=== PATIENT | male | born 1975 | race Caucasian/White ===

== ENCOUNTER 2024-06-10 12:59 | Inpatient (IN) | payer BC ==
[~2024-06-10] VITALS: Ht 175.3 cm; Wt 81.5 kg
[~2024-06-10 12:59] MED LIST: CLON-371 PO; CYCL-1 PO; ESZO3TAB32 PO; HYDR4TAB45 PO; MORP30TA60 PO
[2024-06-10 13:48] LABS: BASOPHILS % (AUTO) 0.7 % (0-1); EOSINOPHILS % (AUTO) 0.8 % (0-6); LYMPHOCYTES # (AUTO) 1.8 X10'3 (1.1-4.8); LYMPHOCYTES % (AUTO) 32.3 % (21-51); MEAN CORPUSCULAR HEMOGLOBIN 31.5 PG (27.0-31.0); MEAN CORPUSCULAR HGB CONC 34.1 g/dL (33.0-36.5); MEAN CORPUSCULAR VOLUME 92.2 FL (78-98); MEAN PLATELET VOLUME 7.3 FL (7.4-10.4); MONOCYTES # (AUTO) 0.4 X10'3 (0-0.9); MONOCYTES % (AUTO) 7.3 % (2-12); NEUTROPHILS # (AUTO) 3.3 X10'3 (1.8-7.7); NEUTROPHILS % (AUTO) 58.9 % (42-75); PLATELET COUNT 240 X10'3 (140-440); RED BLOOD COUNT 4.45 X10'6 (4.70-6.10); RED CELL DISTRIBUTION WIDTH 13.3 % (11.5-14.5); WHITE BLOOD COUNT 5.6 X10'3 (4.5-11.0)
[2024-06-10 14:00] LABS: ALANINE AMINOTRANSFERASE 33 U/L (12-78); ALBUMIN 4.2 G/DL (3.4-5.0); ALBUMIN/GLOBULIN RATIO 1.3 (1.1-1.5); ALKALINE PHOSPHATASE 69 IU/L (46-116); ANION GAP 6 (8-16); ASPARTATE AMINO TRANSFERASE 17 U/L (10-37); BILIRUBIN,TOTAL 0.4 MG/DL (0.1-1.0); BLOOD UREA NITROGEN 18 MG/DL (7-18); BUN/CREATININE RATIO 17.5 (10.0-20.0); CALCIUM 9.6 MG/DL (8.5-10.1); CHLORIDE 104 MMOL/L (99-107); CREATININE 1.03 MG/DL (0.60-1.10); GLUCOSE 91 MG/DL (70-104); POTASSIUM 4.4 MMOL/L (3.5-5.1); SODIUM 138 MMOL/L (135-145); TOTAL CARBON DIOXIDE 27.8 MMOL/L (24-32); TOTAL PROTEIN 7.5 G/DL (6.4-8.2); eCRCL 86 ML/MIN; eGFR 76 ML/MIN
[2024-06-10 14:07] LABS: PRO BRAIN NATRIURETIC PEPTIDE 82 PG/ML (0-125)
[2024-06-10] MEDS: aspirin 81mg tab.chew PO ONE (16:34)
[2024-06-10] MEDS ORDERED: AMIT10TA6 PO (16:37)
[2024-06-10] MEDS ORDERED: METO-395 PO (16:37)
[2024-06-10] MEDS ORDERED: ISOS30TA84 PO (16:37)
[2024-06-10] MEDS ORDERED: LIPA1CAP18 PO (16:37)
[2024-06-10] MEDS ORDERED: magnesium sulf-water 4G/100mL 100 ML IV PRN (16:45)
[2024-06-10] MEDS ORDERED: potassium Cl 40MEQ/1/2NS 520ml 520 ML IV PRN (16:45)
[2024-06-10] MEDS ORDERED: magnesium Cl slow-release 64mg tablet PO PRN (16:45)
[2024-06-10] MEDS ORDERED: ondansetron/PF 4mg/2ml inj IV PRN (16:45)
[2024-06-10] MEDS ORDERED: acetaminophen 325mg tablet PO PRN ×2 (16:45)
[2024-06-10] MEDS ORDERED: mag hydrox/Alum hydrox/simeth 30ml oral suspension PO PRN (16:45)
[2024-06-10] MEDS ORDERED: potassium Cl 20 mEq SR tablet PO PRN ×2 (16:45)
[2024-06-10] MEDS ORDERED: magnesium sulf-water 2g/50mL 50 ML IV PRN (16:45)
[2024-06-10] MEDS: LORazepam 2 mg/ml vial IV PRN (17:17)
[2024-06-10] MEDS: normal saline 1000ml 1,000 ML IV SCH (17:17)
[2024-06-10] MEDS: morphine 2 MG/ML inj. syringe IV PRN (18:00)
[2024-06-10 19:48] VITALS: BP 124/73; PULSE 65; RESP 16; TEMP 98; O2SAT 99
[2024-06-10 20:00] VITALS: RESP 16; O2SAT 99
[2024-06-10] MEDS: zolpidem 5mg tablet PO SCH (21:32)
[2024-06-10] MEDS: heparin, porcine 5000 units/ml vial SQ SCH (21:35)
[2024-06-10 22:00] VITALS: BP 125/85; PULSE 65; RESP 14; TEMP 98; O2SAT 97
[2024-06-11] VITALS (14 sets, daily range): BP systolic 111–145; BP diastolic 75–105; PULSE 60–107; RESP 12–18; TEMP 97.1–98; O2SAT 96–100
[2024-06-11] MEDS: LORazepam 0.5 MG tablet PO PRN (03:41)
[2024-06-11] MEDS ORDERED: nitroGLYCERIN 500mcg/5mL D5W 5 ML IV ONE (05:50)
[2024-06-11] MEDS ORDERED: ondansetron/PF 4mg/2ml inj IV PRN (08:30)
[2024-06-11] MEDS ORDERED: HYDROcodone/acetaminophen 5mg/325mg tablet PO PRN (08:35)
[2024-06-11] MEDS ORDERED: proCHLORperazine 10 MG/2 ml inj IV PRN (08:35)
[2024-06-11] MEDS ORDERED: HYDROcodone/acetaminophen 10/325mg tab PO PRN (08:35)
[2024-06-11 09:24] LABS: BASOPHILS % (AUTO) 0.9 % (0-1); EOSINOPHILS # (AUTO) 0.1 X10'3 (0-0.9); HEMATOCRIT 35.9 % (42.0-52.0); HEMOGLOBIN 12.3 g/dl (14.0-17.9); LYMPHOCYTES # (AUTO) 2.2 X10'3 (1.1-4.8); LYMPHOCYTES % (AUTO) 44.7 % (21-51); MEAN CORPUSCULAR HEMOGLOBIN 32.1 PG (27.0-31.0); MEAN CORPUSCULAR HGB CONC 34.2 g/dL (33.0-36.5); MEAN CORPUSCULAR VOLUME 93.9 FL (78-98); MEAN PLATELET VOLUME 7.4 FL (7.4-10.4); MONOCYTES # (AUTO) 0.3 X10'3 (0-0.9); MONOCYTES % (AUTO) 6.3 % (2-12); NEUTROPHILS # (AUTO) 2.3 X10'3 (1.8-7.7); NEUTROPHILS % (AUTO) 46.1 % (42-75); PLATELET COUNT 192 X10'3 (140-440); RED BLOOD COUNT 3.82 X10'6 (4.70-6.10); RED CELL DISTRIBUTION WIDTH 13.2 % (11.5-14.5)
[2024-06-11 09:41] LABS: ALANINE AMINOTRANSFERASE 28 U/L (12-78); ALBUMIN 3.4 G/DL (3.4-5.0); ALBUMIN/GLOBULIN RATIO 1.2 (1.1-1.5); ALKALINE PHOSPHATASE 56 IU/L (46-116); ANION GAP 3 (8-16); ASPARTATE AMINO TRANSFERASE 26 U/L (10-37); BILIRUBIN,TOTAL 0.4 MG/DL (0.1-1.0); BLOOD UREA NITROGEN 12 MG/DL (7-18); CALCIUM 8.3 MG/DL (8.5-10.1); CHLORIDE 105 MMOL/L (99-107); CHOL/HDL RATIO 5.4 (0.00-4.99); CHOLESTEROL 193 MG/DL (0-200); CREATININE 0.86 MG/DL (0.60-1.10); GLUCOSE 95 MG/DL (70-104); HDL CHOLESTEROL 36 MG/DL (35-60); LDL CHOLESTEROL 120 MG/DL (50-100); POTASSIUM 4.6 MMOL/L (3.5-5.1); SODIUM 137 MMOL/L (135-145); TOTAL CARBON DIOXIDE 29.1 MMOL/L (24-32); TOTAL PROTEIN 6.2 G/DL (6.4-8.2); TRIGLYCERIDES 133 MG/DL (20-135); eCRCL 103 ML/MIN; eGFR > 90 ML/MIN
[2024-06-11] MEDS: OXAZEpam 15mg capsule PO PRN (10:11)
[2024-06-11] MEDS: pantoprazole 40mg Tablet.DR PO SCH ×2 (10:13→20:08)
[2024-06-11] MEDS: isosorbide mononitrate 30mg tab.SR.24H PO SCH (10:13)
[2024-06-11] MEDS: amitriptyline 10mg tablet PO SCH (10:15)
[2024-06-11] MEDS: metoprolol succinate 25mg (24-HOUR) SR. Tablet PO SCH (10:15)
[2024-06-11] MEDS: HYDROcodone/acetaminophen 5mg/325mg tablet PO PRN (10:28)
[2024-06-11] MEDS: morphine 2 MG/ML inj. syringe IV PRN (21:34)
[2024-06-12 02:00] VITALS: BP 135/89; PULSE 95; RESP 12; TEMP 97.1; O2SAT 99
[2024-06-12 06:00] VITALS: BP 154/102; PULSE 87; RESP 24; TEMP 97.9; O2SAT 97
[2024-06-12] MEDS: HYDROcodone/acetaminophen 10/325mg tab PO PRN (06:06)
[2024-06-12 06:43] LABS: BASOPHILS % (AUTO) 0.8 % (0-1); EOSINOPHILS # (AUTO) 0.1 X10'3 (0-0.9); EOSINOPHILS % (AUTO) 2.1 % (0-6); HEMATOCRIT 38.2 % (42.0-52.0); HEMOGLOBIN 13.3 g/dl (14.0-17.9); LYMPHOCYTES # (AUTO) 2.4 X10'3 (1.1-4.8); LYMPHOCYTES % (AUTO) 42.9 % (21-51); MEAN CORPUSCULAR HEMOGLOBIN 31.5 PG (27.0-31.0); MEAN CORPUSCULAR HGB CONC 34.7 g/dL (33.0-36.5); MEAN CORPUSCULAR VOLUME 90.9 FL (78-98); MEAN PLATELET VOLUME 7.2 FL (7.4-10.4); MONOCYTES # (AUTO) 0.4 X10'3 (0-0.9); MONOCYTES % (AUTO) 7.6 % (2-12); NEUTROPHILS # (AUTO) 2.6 X10'3 (1.8-7.7); NEUTROPHILS % (AUTO) 46.6 % (42-75); PLATELET COUNT 223 X10'3 (140-440); RED CELL DISTRIBUTION WIDTH 13.2 % (11.5-14.5); WHITE BLOOD COUNT 5.6 X10'3 (4.5-11.0)
[2024-06-12 06:57] LABS: ALANINE AMINOTRANSFERASE 33 U/L (12-78); ALBUMIN 3.7 G/DL (3.4-5.0); ALBUMIN/GLOBULIN RATIO 1.2 (1.1-1.5); ALKALINE PHOSPHATASE 64 IU/L (46-116); ANION GAP 4 (8-16); ASPARTATE AMINO TRANSFERASE 17 U/L (10-37); BILIRUBIN,TOTAL 0.3 MG/DL (0.1-1.0); BLOOD UREA NITROGEN 13 MG/DL (7-18); BUN/CREATININE RATIO 13.7 (10.0-20.0); CHLORIDE 105 MMOL/L (99-107); CREATININE 0.95 MG/DL (0.60-1.10); GLUCOSE 96 MG/DL (70-104); POTASSIUM 4.4 MMOL/L (3.5-5.1); SODIUM 138 MMOL/L (135-145); TOTAL PROTEIN 6.8 G/DL (6.4-8.2); eCRCL 93 ML/MIN; eGFR 84 ML/MIN
[2024-06-12] MEDS: atorvastatin 20mg tablet PO SCH (07:29)
[2024-06-12] MEDS: clopidogrel 75mg tablet PO SCH (07:30)
[2024-06-12] MEDS: aspirin 81mg, enteric-coated 1 TAB TABLET.DR PO SCH (07:30)
[2024-06-12] MEDS ORDERED: ROSU40TA PO (08:39)
[2024-06-12] MEDS ORDERED: ASPI-1071 PO (08:39)
[2024-06-12] MEDS ORDERED: CLOP75TA34 PO (08:39)
[2024-06-12 11:00] VITALS: BP 140/84; PULSE 93; RESP 14; TEMP 97.4; O2SAT 98
[2024-06-12] MEDS ORDERED: POLY17PO10 PO (12:33)
[2024-06-12 14:00] VITALS: BP 152/98; PULSE 91; RESP 16
== END 2024-06-12 13:52 | disposition home or self-care (01) | DRG 322 ==
LOC: ER 13:00 → ED HOLD 16:50 → PCU 3S 19:00
PROVIDERS: ADMIT Internal Medicine; ATTEND Internal Medicine
PROC: 027034Z Dilation of Coronary Artery, One Artery with Drug-eluting Intraluminal Device, Percutaneous Approach (ICD-10-PCS; principal; 2024-06-11)
PROC: 4A023N7 Measurement of Cardiac Sampling and Pressure, Left Heart, Percutaneous Approach (ICD-10-PCS; 2024-06-11)
PROC: B2111ZZ Fluoroscopy of Multiple Coronary Arteries using Low Osmolar Contrast (ICD-10-PCS; 2024-06-11)
PROC: B2151ZZ Fluoroscopy of Left Heart using Low Osmolar Contrast (ICD-10-PCS; 2024-06-11)
DX: I25.119 Atherosclerotic heart disease of native coronary artery with unspecified angina pectoris (principal); F41.9 Anxiety disorder, unspecified; E78.5 Hyperlipidemia, unspecified; K59.00 Constipation, unspecified; G47.00 Insomnia, unspecified; Z95.0 Presence of cardiac pacemaker; Z79.899 Other long term (current) drug therapy
CPT/HCPCS: 93458; 99285; C9600; 36415; 71045; 74018; 76937; 80053; 80061; 83880; 84484; 85025; 85347; 87081; 93005; 97116; 97161; 99152; 99153; A6258; C1725; C1751; C1769; C1874; C1894; G0378; J1644; J2060; J2270; J7030